=== PATIENT | male | born 1990 | race Hispanic/Latino ===

== ENCOUNTER 2016-12-30 18:39 | Observation (INO) | payer BC ==
[2016-12-30] MEDS ORDERED: Silver Sulfadiazine 1% Cream (20 gm) TOP STA (19:22)
[2016-12-30] MEDS ORDERED: Oxycodone/Acetaminophen 5/325 mg Tab PO STA (19:22)
[2016-12-30 19:47] VITALS: RESP 20; TEMP 97.7; BMI 32.5
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
[2016-12-30] MEDS ORDERED: Sodium Chloride 0.9% 1,000 ML IV ONE (19:50)
[2016-12-30] MEDS ORDERED: Oxycodone/Acetaminophen 5/325 mg Tab PO ONE (20:15)
[2016-12-30] MEDS ORDERED: Silver Sulfadiazine 1% Cream (20 gm) TOP ONE (20:15)
[2016-12-30] MEDS ORDERED: Silver Sulfadiazine 1% Cream (20 gm) ONE (20:20)
[2016-12-30] MEDS ORDERED: Oxycodone/Acetaminophen 5/325 mg Tab ONE (20:32)
[2016-12-30 21:58] VITALS: BP 156/74; PULSE 78
[2016-12-30 22:02] VITALS: O2SAT 100
== END 2016-12-30 22:22 | disposition home or self-care (01) ==
LOC: C.ER 18:39 → C.9OBSV 19:22
PROVIDERS: ADMIT Internal Medicine; ATTEND Internal Medicine
DX: T20.10XA Burn of first degree of head, face, and neck, unspecified site, initial encounter (principal); T23.102A Burn of first degree of left hand, unspecified site, initial encounter; T23.101A Burn of first degree of right hand, unspecified site, initial encounter
CPT/HCPCS: 90471; 90715; 96360; 96374; 99285; J2270; J7040